=== PATIENT | male | born 1960 | race Caucasian/White ===

== ENCOUNTER → 2016-06-26 | Outpatient (CLI) | payer MEDICARE, OTHER ==
[~2016-06-26] MED LIST: AMLO5TAB2 PO; GLIP-26 PO; HYDR1TAB26 PO; INSU100V8 SQ; LIDO700A4 TP; LISI1TAB7 PO; PREG100C PO; TRAM50TA PO
--- NOTE | 2016-06-26 09:22 | KCIC ---
PROCEDURE MR of the right foot HISTORY Wound care for right foot stump since January. Diabetic foot. COMPARISON 02/08/2016. TECHNIQUE Routine multiplanar sequences are obtained. FINDINGS Moderate to severe motion degradation despite repeating sequences. 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 The previously seen plantar ulcer is not well seen today but that may be due to the motion degradation. Small fluid collection identified along the medial cuneiform, at its anterior and medial surface has slightly increased since the prior study. Now measures 2.4 cm by 1.1 cm x 1.6 cm. The medial cuneiform itself demonstrates diffuse marrow edema, and loss of fatty marrow signal on the T1 weighted images. These findings have progressed since the prior study, and is concerning for osteomyelitis. Mild complex fluid surrounding the peroneal tendons compatible with sterile or infectious tenosynovitis. Mild posterior tibial and anterior tibial tendon sheath fluid also nonspecific. Trace fluid in the tibiotalar, subtalar and talonavicular joints of uncertain sterility. There is generalized soft tissue and muscular edema. This does appear greater than on the prior study. Mild thickening and signal within the central plantar aponeurosis, stable since prior study, compatible with mild plantar fasciitis or chronic scarring. IMPRESSION 1. Moderate to severe motion degradation. 2. Increase in size of small fluid collection along the medial cuneiform bone, likely a small abscess. 3. Increase in marrow edema and loss of fatty signal within the medial cuneiform, concerning for progressive osteomyelitis. 4. Trace fluid identified in tibiotalar, subtalar and talonavicular joints of uncertain sterility. Nonspecific tenosynovitis of uncertain sterility. 5. Generalized increase in subcutaneous and muscle edema. Electronically signed by: Gab Modi MD (June 26, 2016 09:20:52)
== END | disposition home or self-care (01) ==
LOC: KCIC MRI 07:49
PROVIDERS: ATTEND Family Medicine
DX: M86.8X7 Other osteomyelitis, ankle and foot (principal)
CPT/HCPCS: 73718

== ENCOUNTER → 2016-11-26 | Day surgery (SDC) | payer MEDICARE, OTHER ==
[~2016-11-26] MED LIST changes: +CARV12.52 PO; +CITA20TA9 PO; +CLOP75TA PO; +ESOM40CA47 PO; +FURO40TA4 PO; +HYDROmorphone 2 MG/ML VIAL IV PRN; +INSU100I27 SQ; +INSU100V31 SQ; +INSU300I SQ; +IV RINGERS,LACTATED 1000ML 1,000 ML IV SCH; +LIDOCAINE 1% PF 2 ML VIAL. ID PRN; +MIDAZOLAM HCL/PF 2 MG/2 ML VIAL. IV PRN; +MORPHINE SULFATE 2 MG/ML DISP.SYRIN. IV PRN; +ONDANSETRON PF 4 MG/2 ML VIAL. IV PRN; +OXAN10TA PO; +POTA20TA82 PO; +PROCHLORPERAZINE 10 MG/2 ML VIAL. IV PRN; +PROPOFOL 20 ML IV ONE; +SUCR1TAB PO; +TAMS0.4C2 PO; +fentaNYL PF VIAL 100 MCG/2 ML VIAL IV PRN
[2016-11-26 11:27] VITALS: BP 109/72
--- NOTE | 2016-11-27 11:14 | PATHOLOGY ---
PATHOLOGY REPORT * * * * * * * * FINAL DIAGNOSIS: A. Duodenal biopsies: - No significant pathologic abnormalities. B. Random colon biopsies: - No significant pathologic abnormalities. (JPM:kenny; 11/27/2016) COMMENT: Sections of the duodenal biopsy reveal multiple segments of duodenal mucosa. Where best oriented, the mucosal villi appear normal. There are no sprue-like changes or significant inflammatory changes. Sections of the random colon biopsy reveal multiple segments of colonic mucosa containing several mucosal-associated lymphoid aggregates. There is no evidence of a chronic destructive colitis, lymphocytic colitis, or collagenous colitis. (JPM:kenny; 11/27/2016) REPORT ELECTRONICALLY SIGNED BY: Dave Ch M.D. DATE/TIME: 11/27/2016 11:13 * * * * * * * * GROSS PATHOLOGY: A. Received in formalin labeled "Noemi Thacker, duodenal BX," are 7 segments of parada soft tissue measuring 2.1 x 1.5 x 0.3 cm in aggregate dimensions and ranging from 0.3 to 0.5 cm in maximum dimension. The specimen is submitted entirely in cassette A1. B. Received in formalin labeled "Noemi Thacker, random colon BX," are multiple (more than 10) segments of parada soft tissue measuring 2.1 x 0.7 x 0.2 cm in aggregate dimensions and ranging from 0.1 to 0.4 cm in maximum dimension. The specimen is submitted entirely in cassette B1. INITIAL CPT CODE(S): A; 35105 B; 01281 Professional services performed [place] [facility] [place] [address] Technical services performed by [facility] at [address] [place] [address], [facility] [address], [place] [address]. SPECIMEN(S) RECEIVED: A.Duodenal biopsy B.Random colon biopsy CLINICAL HISTORY: Epigastric pain PATIENT: NOEMI THACKER /AGE: 1112/23/1960 (Age: 55) PATIENT #: [id number] ALT CASE #: SPECIMEN COLLECTION DATE: 11/26/2016 SPECIMEN RECEIVED DATE: 11/26/2016 [facility] - [address] [place] [address] - PHONE: [phone] * * * END OF REPORT * * *
== END | disposition home or self-care (01) ==
LOC: ENDOS 09:37
PROVIDERS: ATTEND Internal Medicine Gastroenterology
DX: K64.0 First degree hemorrhoids (principal); K29.50 Unspecified chronic gastritis without bleeding; K21.9 Gastro-esophageal reflux disease without esophagitis; I10 Essential (primary) hypertension; E11.9 Type 2 diabetes mellitus without complications; F32.9 Major depressive disorder, single episode, unspecified; F17.200 Nicotine dependence, unspecified, uncomplicated; Z86.69 Personal history of other diseases of the nervous system and sense organs; Z88.1 Allergy status to other antibiotic agents; Z86.39 Personal history of other endocrine, nutritional and metabolic disease; Z87.39 Personal history of other diseases of the musculoskeletal system and connective tissue; Z88.0 Allergy status to penicillin
CPT/HCPCS: 43239; 45380; 82962; 88305; J2704

== ENCOUNTER → 2017-02-14 | Day surgery (SDC) | payer MEDICARE, OTHER ==
[~2017-02-14] MED LIST changes: -AMLO5TAB2 PO; -CARV12.52 PO; -CITA20TA9 PO; -CLOP75TA PO; +DEXAMETHASONE SOD PHOS 20 MG/5 ML VIAL.; -ESOM40CA47 PO; -FURO40TA4 PO; -GLIP-26 PO; +GLYCOPYRROLATE 1 MG/5 ML VIAL.; -HYDR1TAB26 PO; +HYDROmorphone 2 MG/ML VIAL; -HYDROmorphone 2 MG/ML VIAL IV PRN; -INSU100I27 SQ; -INSU100V31 SQ; -INSU100V8 SQ; -INSU300I SQ; +IOHEXOL 300 MG/ML 100ML VIAL.; +IV RINGERS,LACTATED 1000ML 1,000 ML IV; -IV RINGERS,LACTATED 1000ML 1,000 ML IV SCH; -LIDO700A4 TP; +LIDOCAINE 1% PF 2 ML VIAL. ID; -LIDOCAINE 1% PF 2 ML VIAL. ID PRN; +LIDOCAINE 2% PF Vial for OR 5 ML VIAL.; -LISI1TAB7 PO; +MEPERIDINE PF 25 MG/ML VIAL.; +MEPERIDINE PF 25 MG/ML VIAL. IV; +MIDAZOLAM HCL/PF 2 MG/2 ML VIAL.; -MIDAZOLAM HCL/PF 2 MG/2 ML VIAL. IV PRN; +MORPHINE SULFATE 2 MG/ML DISP.SYRIN.; -MORPHINE SULFATE 2 MG/ML DISP.SYRIN. IV PRN; +NEOSTIGMINE METHYLSULFATE 5 MG/5 ML SYRINGE.; -ONDANSETRON PF 4 MG/2 ML VIAL. IV PRN; -OXAN10TA PO; -POTA20TA82 PO; -PREG100C PO; +PROCHLORPERAZINE 10 MG/2 ML VIAL.; -PROCHLORPERAZINE 10 MG/2 ML VIAL. IV PRN; +PROMETHAZINE 12.5 MG in IV NORMAL SALINE 50ML 50 ML IV; +PROPOFOL 20 ML IV; -PROPOFOL 20 ML IV ONE; +ROCURONIUM 50 MG/5 ML VIAL.; +SEVOFLURANE 61 TO 120 MINUTES. IH; -SUCR1TAB PO; +SURGICEL HEMOSTAT 4X8 EACH.; -TAMS0.4C2 PO; -TRAM50TA PO; +fentaNYL PF VIAL 100 MCG/2 ML VIAL; +fentaNYL PF VIAL 100 MCG/2 ML VIAL IV; -fentaNYL PF VIAL 100 MCG/2 ML VIAL IV PRN; +hydrALAZINE 20 MG/ML VIAL.
[2017-02-14 08:32] LABS: POC GLUCOSE 83 mg/dL (70-99)
[2017-02-14] MEDS: BUPIVAC MPF-EPI 0.75%-1:200000 30 ML VIAL. INJ (11:31)
[2017-02-14] MEDS: MORPHINE SULFATE 2 MG/ML DISP.SYRIN. IV ×4 (12:16→12:58)
[2017-02-14 12:17] LABS: POC GLUCOSE 87 mg/dL (70-99)
[2017-02-14] MEDS: fentaNYL PF VIAL 100 MCG/2 ML VIAL IV ×4 (12:31→13:15)
[2017-02-14] MEDS: PROCHLORPERAZINE 10 MG/2 ML VIAL. IV (12:47)
[2017-02-14] MEDS: HYDROmorphone 2 MG/ML VIAL IV ×3 (12:51→13:40)
[2017-02-14] MEDS: hydrALAZINE 20 MG/ML VIAL. IVP (13:05)
== END | disposition home or self-care (01) ==
LOC: SURG 07:59
DX: K80.10 Calculus of gallbladder with chronic cholecystitis without obstruction (principal); Z79.899 Other long term (current) drug therapy; Z79.82 Long term (current) use of aspirin; I10 Essential (primary) hypertension; E78.5 Hyperlipidemia, unspecified; E11.9 Type 2 diabetes mellitus without complications; N40.0 Benign prostatic hyperplasia without lower urinary tract symptoms; Z98.1 Arthrodesis status; Z98.890 Other specified postprocedural states; Z80.0 Family history of malignant neoplasm of digestive organs; Z83.3 Family history of diabetes mellitus
CPT/HCPCS: 47562; 82962; 88304; J0360; J0780; J1100; J1170; J1956; J2175; J2250; J2270; J2704; J2710; J3010; J3490; J7030; Q9967

== ENCOUNTER → 2017-11-28 | Outpatient (CLI) | payer MEDICARE, OTHER ==
[2017-02-14 14:10] VITALS: BP 132/65
[~2017-11-28] MED LIST changes: +AMLO5TAB7 PO; +CARV12.52 PO; +CITA20TA9 PO; +CLOP75TA PO; -DEXAMETHASONE SOD PHOS 20 MG/5 ML VIAL.; +ESOM40CA47 PO; +FURO40TA4 PO; +GLIP-26 PO; -GLYCOPYRROLATE 1 MG/5 ML VIAL.; +HYDR1TAB26 PO; -HYDROmorphone 2 MG/ML VIAL; +INSU100I27 SQ; +INSU100V31 SQ; +INSU100V8 SQ; +INSU300I SQ; -IOHEXOL 300 MG/ML 100ML VIAL.; -IV RINGERS,LACTATED 1000ML 1,000 ML IV; +LIDO700A4 TP; -LIDOCAINE 1% PF 2 ML VIAL. ID; -LIDOCAINE 2% PF Vial for OR 5 ML VIAL.; +LISI1TAB7 PO; -MEPERIDINE PF 25 MG/ML VIAL.; -MEPERIDINE PF 25 MG/ML VIAL. IV; -MIDAZOLAM HCL/PF 2 MG/2 ML VIAL.; -MORPHINE SULFATE 2 MG/ML DISP.SYRIN.; -NEOSTIGMINE METHYLSULFATE 5 MG/5 ML SYRINGE.; +OXAN10TA PO; +POTA20TA82 PO; +PREG100C PO; -PROCHLORPERAZINE 10 MG/2 ML VIAL.; -PROMETHAZINE 12.5 MG in IV NORMAL SALINE 50ML 50 ML IV; -PROPOFOL 20 ML IV; -ROCURONIUM 50 MG/5 ML VIAL.; -SEVOFLURANE 61 TO 120 MINUTES. IH; +SUCR1TAB PO; -SURGICEL HEMOSTAT 4X8 EACH.; +TAMS0.4C2 PO; +TRAM50TA PO; -fentaNYL PF VIAL 100 MCG/2 ML VIAL; -fentaNYL PF VIAL 100 MCG/2 ML VIAL IV; -hydrALAZINE 20 MG/ML VIAL.
--- NOTE | 2017-11-28 13:03 | KCIC ---
MRI left shoulder without contrast dated 11/28/2017 11:45 AM Indication: Shoulder pain , weakness , decreased range of motion pain for 6 months Comparison: No comparison is available. Technique: Routine multiplanar multisequence imaging performed. . Findings: Moderate increased T2 signal throughout the supraspinatus and infraspinatus portions of the rotator cuff. No full-thickness tear or cuff retraction. There is thickening and increased signal of the subscapularis which is otherwise intact. Moderate hypertrophic change of the AC joint. No significant undersurface spurring. Acromion type II morphology. No subacromial/subdeltoid bursal fluid collection. There is increased signal and ill-definition of the intra-articular long head biceps tendon proximally. Extra articular portion courses within the bicipital groove. Glenoid labrum is limited in evaluation due to motion. No apparent labral tear or para labral cyst. No glenohumeral joint effusion or loose body. Suprascapular and spinoglenoid notches are clear. No significant muscle edema or muscle atrophy. IMPRESSION: 1. Mild to moderate rotator cuff tendinopathy with no evidence of full-thickness tear. 2. Moderate to severe proximal biceps tendinosis. 3. Moderate AC joint arthropathy. Electronically signed by: Gab Gomez MD (11/28/2017 1:00 PM) [facility]-[id number]
== END | disposition home or self-care (01) ==
LOC: KCIC MRI 11:40
PROVIDERS: ATTEND Nurse Practitioner Family
DX: M75.102 Unspecified rotator cuff tear or rupture of left shoulder, not specified as traumatic (principal)
CPT/HCPCS: 73221

== ENCOUNTER → 2018-04-10 | Outpatient (CLI) | payer MEDICARE, OTHER ==
[2017-02-14 14:10] VITALS: BP 132/65
[~2018-04-10] MED LIST changes: +AMLO5TAB10 PO; -AMLO5TAB7 PO; +CARV12.511 PO; -CARV12.52 PO
== END | disposition home or self-care (01) ==
LOC: SPEC 16:59
PROVIDERS: ATTEND Podiatrist
DX: E11.621 Type 2 diabetes mellitus with foot ulcer (principal)
CPT/HCPCS: 87071; 87075

== ENCOUNTER → 2019-01-30 | Day surgery (SDC) | payer MEDICARE, OTHER ==
[~2019-01-30] MED LIST changes: +INSU100I32 SQ; +IV NORMAL SALINE 1000ML BAG 1,000 ML IV ONE; +LIDOCAINE 2% PF 5 ML VIAL. ONE; +LISI1TAB20 PO; -LISI1TAB7 PO; +POTA20TA4 PO; -POTA20TA82 PO; +PROPOFOL 20 ML IV ONE; +SEMA0.25 SQ
[2019-01-30 10:20] VITALS: BP 167/71
== END ==
LOC: ENDOS 08:45
PROVIDERS: ATTEND Internal Medicine Gastroenterology
DX: R11.2 Nausea with vomiting, unspecified (principal); K29.50 Unspecified chronic gastritis without bleeding; K21.0 Gastro-esophageal reflux disease with esophagitis; I12.9 Hypertensive chronic kidney disease with stage 1 through stage 4 chronic kidney disease, or unspecified chronic kidney disease; E11.22 Type 2 diabetes mellitus with diabetic chronic kidney disease; N18.9 Chronic kidney disease, unspecified; F32.9 Major depressive disorder, single episode, unspecified; E78.00 Pure hypercholesterolemia, unspecified; F15.90 Other stimulant use, unspecified, uncomplicated; F17.210 Nicotine dependence, cigarettes, uncomplicated; Z88.3 Allergy status to other anti-infective agents; Z88.8 Allergy status to other drugs, medicaments and biological substances; Z88.0 Allergy status to penicillin; Z86.010 Personal history of colon polyps; Z79.84 Long term (current) use of oral hypoglycemic drugs
CPT/HCPCS: 43235; J2001; J2704

== ENCOUNTER → 2020-07-08 | Outpatient (CLI) | payer MEDICARE, OTHER ==
[2019-01-30 10:20] VITALS: BP 167/71
[~2020-07-08] MED LIST changes: +AMLO-186 PO; -AMLO5TAB10 PO; -IV NORMAL SALINE 1000ML BAG 1,000 ML IV ONE; -LIDOCAINE 2% PF 5 ML VIAL. ONE; -PROPOFOL 20 ML IV ONE
[2020-07-08] MEDS: GADOTERATE 7.5 MMOL/15ML VIAL. IVP ONE (14:25)
--- NOTE | 2020-07-08 16:03 | KCIC ---
MRI of the cervical spine without and with contrast 07/08/2020 CLINICAL HISTORY: Cervical spinal canal stenosis. History of previous cervical spine surgery. TECHNIQUE: Unenhanced T1-weighted, T2-weighted and inversion recovery sagittal and gradient echo, T2- weighted and T1-weighted axial images of the cervical spine were obtained. After the intravenous admi nistration of 24 cc of CLARISCAN, enhanced T1-weighted sagittal and axial images of the cervical spin e were obtained. FINDINGS: Comparison study is dated 01/30/2013. Very mild lateral curvature of the cervical spine is seen convex to the left. There is reversal of th e normal cervical lordosis. Degenerative signal changes and varying loss of height are seen involving all of the disks of the cervical spine. Degenerative signal changes are seen within the marrow surro unding these discs. The patient is post laminectomy and posterolateral fusion using pedicle screws an d stabilizing rods which extends from C3 to C6-7. Paracentral areas of myelomalacia are seen involvin g the cervical spinal cord at superior aspect of the C4 level. These measure 5 mm in greatest diamete r. No additional area of abnormal signal intensity is seen involving the cervical spinal cord. No are a of abnormal contrast enhancement is seen. At the C2-3 disc space there is a mild to moderate generalized disc bulge. Degenerative changes are s een involving the uncovertebral and facet joints, right greater than left. These findings efface the anterior and posterior CSF resulting in mild central spinal canal stenosis without evidence of cord i mpingement. No neural foraminal stenosis is seen. At the C3-4, C4-5, C5-6 and C6-7 levels degenerative changes are seen involving the uncovertebral and facet joints bilaterally. These findings do not result in areas of significant central spinal canal or neural foraminal stenosis. At the C7-T1 disc space there is a minimal generalized disc bulge. Degenerative changes are seen invo lving the facet joints bilaterally. These findings do not result in significant central spinal canal or neural foraminal stenosis. IMPRESSION: 1. Post laminectomy and fusion which extends from C3 to C6-7. 2. Areas of myelomalacia are seen involving the cervical spinal cord at the superior C4 level. 3. Degenerative changes are seen involving the cervical spine. These findings result in mild central spinal canal stenosis at C2-3 without evidence of cord impingement. No neural foraminal stenosis is s een. Electronically signed by: Jean-Pierre Waggoner MD (07/08/2020 4:01 PM) [id number]
--- NOTE | 2020-07-08 16:34 | KCIC ---
MRI of the thoracic spine without and with contrast 06/30/2020 CLINICAL HISTORY: Thoracic spinal canal stenosis. TECHNIQUE: Unenhanced T1-weighted, T2-weighted and inversion recovery sagittal and T1-weighted and T2 -weighted axial images of the thoracic spine were obtained. After the intravenous administration of 2 4 cc of CLARISCAN, enhanced fat saturated T1-weighted sagittal images of the thoracic spine were obta ined. T2-weighted sagittal images of the cervical, thoracic and lumbar spine were obtained for locali zation purposes. FINDINGS: Minimal S-shaped curvature of the thoracolumbar spine is seen. Degenerative signal changes and loss of height are seen involving all the disks of the thoracic spine. Degenerative signal change s are seen within the marrow surrounding these discs. No area of abnormal signal intensity is seen in volving the thoracic spinal cord. No area of abnormal contrast enhancement is noted. At the T1-2 disc space there is a mild generalized disc bulge. Superimposed on this disc bulge is a l eft paracentral focal disc protrusion. This measures 3 mm in AP diameter. Degenerative changes are se en involving the facet joints bilaterally. These findings when combined with prominence of the epidur al fat result in mild central spinal canal stenosis without evidence of cord impingement. No neural f oraminal stenosis is seen. At the T2-3 disc space is a mild generalized disc bulge. Superimposed on this disc bulge is a right p aracentral focal disc protrusion. This measures 3 mm in AP diameter. Degenerative changes are seen in volving the facet joints bilaterally. These findings when combined with prominence of the epidural fa t result in mild right greater than left central spinal canal stenosis without evidence of cord impin gement. No neural foraminal stenosis is seen. At the T3-4 disc space there is a mild generalized disc bulge. Degenerative changes are seen involvin g the facet joints bilaterally. There is prominence of the epidural fat. These findings result in mil d central spinal canal stenosis without evidence of cord impingement. At the T4-5 disc space there is a mild generalized disc bulge. Superimposed on this disc bulge is a l eft paracentral focal disc osteophyte complex. This measures 5 mm in AP diameter. Degenerative change s are seen involving the facet joints bilaterally. There is prominence of posterior epidural fat. The se findings result in mild to moderate left greater than right central spinal canal stenosis the disc osteophyte complex deforms the left anterolateral aspect of the thoracic spinal cord without cord im pingement. No neural foraminal stenosis is seen. At the T5-6 disc space there is a mild generalized disc bulge. Superimposed on this disc bulge is a l eft paracentral disc osteophyte complex. This measures 4 mm in AP diameter. Degenerative changes are seen involving the facet joints bilaterally. There is prominence of posterior epidural fat. These fin dings when combined result in mild to moderate left greater than right central spinal canal stenosis without evidence of cord impingement. Mild left neural foraminal stenosis is seen. The right neural f oramen is patent. At the T6-7 disc space there is a mild generalized disc bulge. Superimposed on this disc bulge is a c entral/right paracentral disc osteophyte complex. This measures 4 mm in AP diameter. Degenerative frank nges are seen involving the facet joints bilaterally. There is prominence of the epidural fat. These findings when combined result in moderate right greater than left central spinal canal stenosis witho ut cord impingement. No neural foraminal stenosis is seen. At the T7-8 disc space there is a mild to moderate generalized disc bulge. Degenerative changes are s een involving the facet joints bilaterally. There is prominence of the posterior epidural fat. These findings when combined result in moderate central spinal canal stenosis without significant cord impi ngement. No neural foraminal stenosis is seen. At the T8-9 disc space there is a mild to moderate generalized disc bulge. Superimposed on this disc bulge is a central/right paracentral focal disc protrusion. This measures 3 mm in AP diameter. Degene rative changes are seen involving the facet joints bilaterally. There is prominence of the posterior epidural fat. These findings when combined result in mild to moderate right greater than left central spinal canal stenosis without cord impingement. No neural foraminal stenosis is seen. At the T9-T10 disc space there is a mild generalized disc bulge. Degenerative changes are seen involv ing the facet joints bilaterally. There is prominence of the epidural fat. These findings when combin ed result in mild to moderate central spinal canal stenosis without evidence of cord impingement. No neural foraminal stenosis is seen. At the T10-11 disc space is a mild generalized disc bulge. Degenerative changes are seen involving th e facet joints bilaterally. There is prominence of the epidural fat. These findings when combined res ult in mild central spinal canal stenosis. No neural foraminal stenosis is seen. At the T11-12 disc space there is a mild generalized disc bulge. Superimposed on this disc bulge is a left paracentral focal disc protrusion. This measures 3 mm in AP diameter. Degenerative changes are seen involving the facet joints bilaterally. There is prominence of the posterior epidural fat. These findings when combined do not result in significant central spinal canal or neural foraminal stenosi s. At the T12-L1 disc space there is a minimal generalized disc bulge. Degenerative changes are seen inv olving the facet joints bilaterally. These findings do not result in significant central spinal canal or neural foraminal stenosis. IMPRESSION: Degenerative changes are seen throughout the thoracic spine. These findings results in mu ltilevel central spinal canal stenosis without significant cord impingement as discussed above. Electronically signed by: Jean-Pierre Waggoner MD (07/08/2020 4:32 PM) [id number]
--- NOTE | 2020-07-08 16:43 | KCIC ---
MRI of the lumbar spine without and with contrast 06/30/2020 CLINICAL HISTORY: Lumbar radiculopathy. History of previous lumbar spine surgery. TECHNIQUE: Unenhanced T1-weighted and T2-weighted sagittal and axial and inversion recovery sagittal images of the lumbar spine were obtained. After the intravenous administration of 24 cc of CLARISCAN, enhanced fat saturated T1-weighted sagittal and axial images of the lumbar spine were obtained. FINDINGS: Mild S-shaped curvature of the thoracolumbar spine is seen. Degenerative signal changes and loss of height are seen involving all the disks of the lumbar spine. Degenerative signal changes are seen within the marrow surrounding these discs. The conus medullaris is normal morphology, position, and signal characteristics. At the L1-2 disc space there is a mild generalized disc bulge. Degenerative changes are seen involvin g the facet joints bilaterally. There is mild ligament flavum hypertrophy bilaterally. These findings do not result in significant central spinal canal or neural foraminal stenosis. At the L2-3 disc space there is a moderate generalized disc bulge. Degenerative changes are seen invo lving the facet joints bilaterally. There is mild ligament flavum hypertrophy bilaterally. These find ings when combined with prominence of the posterior epidural fat result in mild to moderate central s corrie canal stenosis. No neural foraminal stenosis is seen. At the L3-4 disc space, the patient is post left hemilaminotomy. There is a moderate generalized disc bulge. Degenerative changes are seen involving the facet joints, left greater than right. These find ings when combined do not result in significant central spinal canal stenosis. Mild left neural sahra inal stenosis is seen. The right neural foramen is patent. At the L4-5 disc space, the patient is post left hemilaminectomy. There is a moderate generalized dis c bulge. Degenerative changes are seen involving the facet joints bilaterally. These findings result in mild right greater than left central spinal canal stenosis. Mild to moderate bilateral neural fora vicky stenosis is seen. At the L5-S1 disc space is a moderate generalized disc bulge. Degenerative changes are seen involving the facet joints bilaterally. These findings do not result in significant central spinal canal steno sis. Moderate right neural foraminal stenosis is seen. IMPRESSION: 1. Post left hemilaminotomy at L3-4 and left hemilaminectomy at L4-5. 2. . The changes of degenerative disc disease are seen throughout the lumbar spine. These findings re sult in mild to moderate central spinal canal stenosis at L2-3 and mild right greater than left centr al spinal canal stenosis at L4-5. Mild left neural foraminal stenosis is seen at L3-4. Mild to modera te bilateral neural foraminal stenosis is seen at L4-5. Moderate right neural foraminal stenosis is s een at L5-S1. Electronically signed by: Jean-Pierre Waggoner MD (07/08/2020 4:40 PM) [id number]
== END ==
LOC: KCIC MRI 12:20
PROVIDERS: ATTEND Family Medicine
DX: M47.27 Other spondylosis with radiculopathy, lumbosacral region (principal); M47.813 Spondylosis without myelopathy or radiculopathy, cervicothoracic region; M48.03 Spinal stenosis, cervicothoracic region; M48.07 Spinal stenosis, lumbosacral region
CPT/HCPCS: 72156; 72157; 72158; 82565; A9575

== ENCOUNTER → 2020-07-27 | Outpatient (CLI) | payer MEDICARE, OTHER ==
[2019-01-30 10:20] VITALS: BP 167/71
--- NOTE | 2020-07-28 09:25 | KCIC ---
XR L-SPINE BENDING ONLY 2-3 VIEWS History: Reason: SPONDYLOLITHESIS / Spl. Instructions: BACK PAIN / History: Technique: 2 views lumbar spine. Comparison: MRI July 08, 2020 Findings: Grade 1 anterolisthesis L4 on L5 measures 0.4 cm in extension and 1.0 cm in flexion. Normal vertebral body height. No fracture. Advanced multilevel degenerative disc changes most prominent L3-L4 and L4- L5. Advanced facet arthropathy. Vascular calcifications with stent. Impression: 1. Advanced multilevel lumbar spondylosis. 2. Grade 1 anterolisthesis L4 on L5, increased within flexion. Electronically signed by: Christoph Taylor DO (07/28/2020 9:23 AM) [id number]
== END ==
LOC: KCIC 11:36
PROVIDERS: ATTEND Neurological Surgery
DX: M47.816 Spondylosis without myelopathy or radiculopathy, lumbar region (principal); M43.16 Spondylolisthesis, lumbar region
CPT/HCPCS: 72100